=== PATIENT | female | born 1970 | race Caucasian/White ===

== ENCOUNTER → 2021-02-04 | Outpatient (CLI) | payer OTHER ==
[~2021-02-04] MED LIST: ATIVAN1 MG PO; AZITHROMYCIN500 MG PO; BENTYL 20MG TAB20 MG PO; K-DUR TAB 10 M10 MEQ PO; K-DUR TAB 20 M20 MEQ PO; OMNICEF 300 MG300 MG PO; PHENERGAN 12.12.5 MG PR; PHOS-NAK PACKET1 EA PO; PREDNISONE20 MG PO; PROVENTIL HFA6.7 GM INH; ZOFRAN ODT 4 MG4 MG PO
[2021-02-05 08:13] LABS: VITAMIN D, 25-HYDROXY 21.1 ng/mL (30.0-100.0)
== END ==
LOC: LAB 09:56
PROVIDERS: Family Medicine
DX: R53.83 Other fatigue (principal); R79.89 Other specified abnormal findings of blood chemistry; E78.2 Mixed hyperlipidemia; E55.9 Vitamin D deficiency, unspecified
CPT/HCPCS: 36415; 80053; 80061; 82607; 83520; 84439; 84443; 84481

== ENCOUNTER → 2021-03-17 | Outpatient (CLI) | payer OTHER | LOC: MRI 09:13 | DX: M51.16 Intervertebral disc disorders with radiculopathy, lumbar region (principal) | CPT/HCPCS: 72148 ==

== ENCOUNTER → 2021-07-15 | Outpatient (CLI) | payer OTHER | LOC: MAMO 12:58 | DX: Z12.31 Encounter for screening mammogram for malignant neoplasm of breast (principal) | CPT/HCPCS: 77063; 77067 ==